=== PATIENT | male | born 1970 | race Hispanic/Latino ===

== ENCOUNTER 2020-05-25 16:16 | Observation (INO) | payer MEDICARE, MEDICAID ==
[2020-05-25 17:25] LABS: #Eosinphils 0.3 10x3/uL (0.0-0.5); #Monocytes 0.7 10x3/uL (0.0-1.1); #Neutrophils 3.3 10x3/uL (1.5-8.4); %Basophils 0.5 % (0.0-2.0); %Lymphocytes 28.5 % (18.0-47.0); %Monocytes 10.8 % (0.0-10.0); %Neutrophils 54.9 % (40.0-75.0); Hemoglobin 13.6 g/dL (13.5-17.5); Mean Corpuscular HGB CONC 33.4 g/dL (32.0-36.0); Mean Corpuscular Hemoglobin 28.6 pg (27.0-33.0); Mean Corpuscular Volume 85.5 fl (81.2-95.1); Mean Platelet Volume 10.6 fl (7.4-10.4); Platelet Count 222 10x3/uL (150-450); RBC Distribution Width 13.1 % (11.5-14.5); Red Blood Cell (RBC) Count 4.76 10x6/uL (4.32-5.72)
[2020-05-25 17:35] LABS: ALT (SGPT) 33 U/L (8-55); AST (SGOT) 20 U/L (5-34); Alkaline Phosphatase 74 U/L (40-110); Anion Gap 13 mmol/L (10-20); BUN (Urea Nitrogen) 14 mg/dL (8.9-20.6); Bilirubin, Total 0.3 mg/dL (0.2-1.2); Calc. Creatinine Clearance 0 mL/min (70-130); Calcium 9.1 mg/dL (7.8-10.44); Carbon Dioxide 31 mmol/L (22-29); Chloride 100 mmol/L (98-107); Globulin 2.8 g/dL (2.4-3.5); Glucose 191 mg/dL (70-105); Potassium 3.6 mmol/L (3.5-5.1); Protein, Total 6.8 g/dL (6.0-8.3); Sodium 140 mmol/L (136-145)
[2020-05-25] MEDS ORDERED: Enoxaparin Sodium 100 MG/ML SYRINGE ONE (19:29)
[2020-05-25 20:22] VITALS: BMI 75.9
[2020-05-25] MEDS ORDERED: Acetaminophen 325 MG TAB PO PRN (21:34)
[2020-05-25] MEDS ORDERED: HumaLOG 300 UNITS/3 ML VIAL SC PRN (21:34)
[2020-05-25] MEDS ORDERED: Dextrose 5% in Water 1,000 ML IV PRN (21:34)
[2020-05-25] MEDS ORDERED: Calcium Carbonate 500 MG ChewTAB PO PRN (21:34)
[2020-05-25] MEDS ORDERED: Senokot S 8.6-50 MG TAB PO PRN (21:34)
[2020-05-25] MEDS ORDERED: Dextrose 50% Abboject 50 ML SYRINGE SLOW IVP PRN (21:34)
[2020-05-25] MEDS ORDERED: Ondansetron PF 4 MG/2 ML Vial IVP PRN (21:34)
[2020-05-25] MEDS ORDERED: Aspirin 81 mg Enteric Coated Tablet PO SCH (21:45)
[2020-05-25] MEDS ORDERED: Nitroglycerin 2% Ointment 1 INCH/1 GM Packet TOP SCH (22:00)
[2020-05-25] MEDS: HYDROcodone/Acetaminophen 5/325 mg Tablet PO PRN (22:55)
[2020-05-26] MEDS ORDERED: Levothyroxine Sodium 50 MCG TAB PO SCH (06:00)
[2020-05-26 06:05] LABS: Anion Gap 16 mmol/L (10-20); BUN (Urea Nitrogen) 14 mg/dL (8.9-20.6); Calc. Creatinine Clearance 309 mL/min (70-130); Carbon Dioxide 32 mmol/L (22-29); Cardiac Risk 4.6 (Less than 4.5); Chloride 98 mmol/L (98-107); Cholesterol 147 mg/dl (< 200 Desired); Glucose 179 mg/dL (70-105); HDL Cholesterol 32 mg/dL (>60 Neg Risk); LDL Cholesterol, Calculated 53 mg/dL; Potassium 3.7 mmol/L (3.5-5.1); Sodium 142 mmol/L (136-145); Triglycerides 312 mg/dL (Less than 150)
[2020-05-26] MEDS ORDERED: Furosemide 40 MG TAB PO SCH (07:30)
[2020-05-26] MEDS ORDERED: Spironolactone 25 MG TAB PO SCH (08:00)
[2020-05-26] MEDS: HYDROcodone/Acetaminophen 5/325 mg Tablet PO PRN (08:50)
[2020-05-26] MEDS ORDERED: Hydrochlorothiazide 25 MG TAB PO SCH (09:00)
[2020-05-26] MEDS ORDERED: Bupropion 150 MG SR TAB PO SCH (09:00)
[2020-05-26] MEDS ORDERED: Losartan 25 MG TAB PO SCH (09:00)
[2020-05-26] MEDS ORDERED: Aspirin 81 mg Enteric Coated Tablet PO SCH (09:00)
[2020-05-26] MEDS ORDERED: Enoxaparin Sodium 40 MG/0.4 ML SYRINGE SC SCH (09:00)
[2020-05-26 11:39] LABS: Hemoglobin A1c 7.8 % (4.0-6.0)
[2020-05-26 11:56] VITALS: BP 136/77; TEMP 97.1
[2020-05-26 16:20] LABS: SARS-CoV-2 PCR by NAA Not Detected (NotDetected)
[2020-05-26] MEDS ORDERED: Atorvastatin Calcium 10 MG TAB PO SCH (21:00)
[2020-05-26] MEDS ORDERED: LURASIDONE 80 MG PO SCH (21:00)
== END 2020-05-26 15:42 | disposition home or self-care (01) ==
LOC: CSHERS 16:16 → UNDOADMOB 20:04 → CSHTELE 20:04
PROVIDERS: ADMIT Student in an Organized Health Care Education/Training Program; ATTEND Student in an Organized Health Care Education/Training Program
DX: R07.89 Other chest pain (principal); R00.0 Tachycardia, unspecified; R06.02 Shortness of breath; E11.9 Type 2 diabetes mellitus without complications; I10 Essential (primary) hypertension; K21.9 Gastro-esophageal reflux disease without esophagitis; E03.9 Hypothyroidism, unspecified; G47.33 Obstructive sleep apnea (adult) (pediatric); E78.5 Hyperlipidemia, unspecified; E66.01 Morbid (severe) obesity due to excess calories; Z68.45 Body mass index [BMI] 70 or greater, adult; Z79.4 Long term (current) use of insulin; Z79.82 Long term (current) use of aspirin; Z79.899 Other long term (current) drug therapy; Z86.711 Personal history of pulmonary embolism; Z87.891 Personal history of nicotine dependence; Z88.0 Allergy status to penicillin; Z88.8 Allergy status to other drugs, medicaments and biological substances; Z20.822 Contact with and (suspected) exposure to COVID-19
CPT/HCPCS: 71045; 78451; 80048; 80053; 80061; 82962 ×2; 83036; 83880; 84484 ×3; 85025; 85379; 93005; 93306; 96372 ×2; 99285; A9540; G0378 ×2; U0003; U0005; 36415; 36416; 87635; J1650; J1815

== ENCOUNTER 2022-09-29 20:10 | Emergency (ER) | payer OTHER | END 2022-09-29 23:22 | disposition home or self-care (01) | LOC: CSHERS 20:10 | DX: M79.671 Pain in right foot (principal); K21.9 Gastro-esophageal reflux disease without esophagitis; E11.9 Type 2 diabetes mellitus without complications; E78.5 Hyperlipidemia, unspecified; E03.9 Hypothyroidism, unspecified; Z87.891 Personal history of nicotine dependence; Z79.84 Long term (current) use of oral hypoglycemic drugs; Z79.899 Other long term (current) drug therapy; Z79.82 Long term (current) use of aspirin ==

== ENCOUNTER 2024-01-04 16:05 | Emergency (ER) | payer MEDICARE, OTHER ==
[2024-01-04 17:13] LABS: #Basophils 0.03 10x3/uL (0.0-0.2); #Eosinophils 0.22 10x3/uL (0.0-0.5); #Monocytes 0.57 10x3/uL (0.0-1.1); #Neutrophils 4.43 10x3/uL (1.5-8.4); %Basophils 0.4 % (0.0-2.0); %Eosinophils 3.2 % (0.0-6.0); %Lymphocytes 22.9 % (18.0-47.0); %Monocytes 8.4 % (0.0-10.0); Hematocrit 40.7 % (38.8-50.0); Hemoglobin 14.6 g/dL (13.5-17.5); Mean Corpuscular HGB CONC 35.9 g/dL (32.0-36.0); Mean Corpuscular Hemoglobin 30.3 pg (27.0-33.0); Mean Corpuscular Volume 84.4 fL (81.2-95.1); Mean Platelet Volume 11.1 fL (7.4-10.4); Platelet Count 196 10x3/uL (150-450); Red Blood Cell (RBC) Count 4.82 10x6/uL (4.32-5.72); White Blood Cell (WBC) Count 6.8 10x3/uL (3.5-10.5)
[2024-01-04 17:33] LABS: Platelet Adequacy Comment Appears Adequate; Platelet Clumps SLIGHT; RBC Morph Comment Within Normal Limits
[2024-01-04 17:44] LABS: ALT (SGPT) 26 U/L (8-55); AST (SGOT) 31 U/L (5-34); Alkaline Phosphatase 58 U/L (40-110); Anion Gap 16 mmol/L (10-20); BUN (Urea Nitrogen) 10 mg/dL (8.4-25.7); Bilirubin, Total 0.6 mg/dL (0.2-1.2); Calc. Creatinine Clearance 0 mL/min (70-130); Calcium 9.2 mg/dL (7.8-10.44); Carbon Dioxide 22 mmol/L (22-29); Chloride 100 mmol/L (98-107); Estimated GFR 104; Globulin 2.8 g/dL (2.4-3.5); Glucose 130 mg/dL (70-105); Potassium 3.7 mmol/L (3.5-5.1); Protein, Total 6.8 g/dL (6.0-8.3); Sodium 134 mmol/L (136-145)
[2024-01-04 17:52] LABS: Troponin I Less than 0.010 ng/mL (< 0.028)
== END 2024-01-04 18:02 | disposition home or self-care (01) ==
LOC: CSHERS 16:05
DX: R55 Syncope and collapse (principal); R06.02 Shortness of breath; I10 Essential (primary) hypertension; E11.9 Type 2 diabetes mellitus without complications; Z87.891 Personal history of nicotine dependence
CPT/HCPCS: 71045; 80053; 84484; 85025; 93005

== ENCOUNTER 2024-02-26 14:34 | Emergency (ER) | payer OTHER ==
[~2024-02-26 14:34] MED LIST: Iopamidol 370 76% 100 ML VIAL ONE
[2024-02-26] MEDS ORDERED: Aspirin Chewable 81 MG TAB ONE (15:09)
[2024-02-26 15:32] LABS: #Basophils 0.04 10x3/uL (0.0-0.2); #Eosinophils 0.44 10x3/uL (0.0-0.5); #Monocytes 0.74 10x3/uL (0.0-1.1); #Neutrophils 3.41 10x3/uL (1.5-8.4); %Basophils 0.6 % (0.0-2.0); %Eosinophils 6.5 % (0.0-6.0); %Lymphocytes 31.7 % (18.0-47.0); %Monocytes 10.9 % (0.0-10.0); %Neutrophils 50.2 % (40.0-75.0); Hematocrit 39.9 % (38.8-50.0); Hemoglobin 14.5 g/dL (13.5-17.5); Mean Corpuscular HGB CONC 36.3 g/dL (32.0-36.0); Mean Corpuscular Hemoglobin 30.4 pg (27.0-33.0); Mean Corpuscular Volume 83.6 fL (81.2-95.1); Mean Platelet Volume 10.6 fL (7.4-10.4); Platelet Count 210 10x3/uL (150-450); RBC Distribution Width 12.7 % (11.5-14.5); Red Blood Cell (RBC) Count 4.77 10x6/uL (4.32-5.72); White Blood Cell (WBC) Count 6.8 10x3/uL (3.5-10.5)
[2024-02-26 15:59] LABS: ALT (SGPT) 22 U/L (8-55); AST (SGOT) 21 U/L (5-34); Albumin 3.8 g/dL (3.5-5.0); Alkaline Phosphatase 50 U/L (40-110); Anion Gap 13 mmol/L (10-20); BUN (Urea Nitrogen) 8 mg/dL (8.4-25.7); Bilirubin, Total 0.6 mg/dL (0.2-1.2); Calc. Creatinine Clearance 0 mL/min (70-130); Calcium 8.9 mg/dL (7.8-10.44); Carbon Dioxide 24 mmol/L (22-29); Chloride 100 mmol/L (98-107); Estimated GFR 105; Globulin 2.5 g/dL (2.4-3.5); Glucose 86 mg/dL (70-105); Lipase 24 U/L (8-78); Potassium 3.3 mmol/L (3.5-5.1); Protein, Total 6.3 g/dL (6.0-8.3); Sodium 134 mmol/L (136-145)
[2024-02-26 16:05] LABS: Troponin I Less than 0.010 ng/mL (< 0.028)
== END 2024-02-26 17:12 | disposition home or self-care (01) ==
LOC: CSHERS 14:34
DX: R07.89 Other chest pain (principal); I10 Essential (primary) hypertension; E11.9 Type 2 diabetes mellitus without complications; Z87.891 Personal history of nicotine dependence
CPT/HCPCS: 71045; 71275; 80053; 83690; 84484; 85025; 93005; 99285; Q9967